=== PATIENT | female | born 1990 | race Caucasian/White ===

== ENCOUNTER 2023-07-10 02:43 | Outpatient (RCR) | payer OTHER, SELFPAY ==
[2023-07-10] MEDS: Normal Saline Flush 10 ML SYR IVP (09:24)
[2023-07-10 09:50] LABS: Abs Immature Grans 0.01 10^3/uL (0.0-0.06); Absolute Basophil Count 0.05 10^3/uL (0.0-0.2); Absolute Eosinophil Count 0.33 10^3/uL (0.0-0.7); Absolute Lymphocyte Count 1.62 10^3/uL (1.2-3.4); Basophils % 1.1; Eosinophils % 7.5; HCT 34.4 % (36.0-46.0); HGB 10.9 g/dL (11.2-15.7); Immature Grans % 0.2; Lymphocytes % 36.7; MCH 26.3 pg (27.0-33.0); MCHC 31.7 % (32.0-36.0); MCV 83 fL (80-95); MPV 9.5 fL (8.0-11.0); Monocytes % 6.8; Neutrophils % 47.7; Platelet Count 330 10^3/uL (130-400); RBC 4.15 10^6/uL (3.93-5.22); RDW-SD 48.3 fL; WBC 4.41 10^3/uL (4.4-10.8)
[2023-07-10 10:07] LABS: ALT 59 U/L (14-59); AST 29 U/L (15-37); Albumin 3.9 g/dL (3.4-5.0); Alkaline Phosphatase 82 U/L (46-116); Anion Gap 9.3 mmol/L (3-11); BUN 11 mg/dL (7-18); Bilirubin, Total 0.4 mg/dL (0.2-1.0); CO2 27.7 mmol/L (21.0-32.0); CREATININE 0.8 mg/dL (0.55-1.02); Calcium 9.5 mg/dL (8.5-10.1); Chloride 108 mmol/L (98-107); Estimated GFR 99.71 (mL/min/1.73m2); Glucose 95 mg/dL (74-106); Potassium 3.9 mmol/L (3.5-5.1); Sodium 145 mmol/L (136-145); Total Protein 7.5 g/dL (6.4-8.2)
== END 2023-07-17 23:59 | disposition home or self-care (01) ==
LOC: INF 02:43
PROVIDERS: Internal Medicine Hematology & Oncology; PCP Family Medicine; Visit Provider Internal Medicine Hematology & Oncology
DX: C50.412 Malignant neoplasm of upper-outer quadrant of left female breast (principal); Z17.0 Estrogen receptor positive status [ER+]; Z45.2 Encounter for adjustment and management of vascular access device
CPT/HCPCS: 36591; 80053; 85025

== ENCOUNTER 2023-08-14 03:02 | Outpatient (RCR) | payer OTHER, SELFPAY ==
[2023-07-24] MEDS: Normal Saline Flush 10 ML SYR IVP (08:16)
[2023-07-24 08:56] LABS: HCT 31.6 % (36.0-46.0); MCH 26.3 pg (27.0-33.0); MCHC 31.6 % (32.0-36.0); MCV 83 fL (80-95); MPV 10.3 fL (8.0-11.0); Platelet Count 243 10^3/uL (130-400); RDW 15.4 % (11.7-14.6); RDW-SD 46.7 fL
[2023-07-24 09:09] LABS: ALT 76 U/L (14-59); AST 40 U/L (15-37); Albumin 3.7 g/dL (3.4-5.0); Alkaline Phosphatase 73 U/L (46-116); Anion Gap 8.4 mmol/L (3-11); BUN 12 mg/dL (7-18); Bilirubin, Total 0.3 mg/dL (0.2-1.0); CO2 25.6 mmol/L (21.0-32.0); CREATININE 0.7 mg/dL (0.55-1.02); Calcium 9.2 mg/dL (8.5-10.1); Chloride 106 mmol/L (98-107); Estimated GFR 116.31 (mL/min/1.73m2); Glucose 93 mg/dL (74-106); Potassium 3.9 mmol/L (3.5-5.1); Sodium 140 mmol/L (136-145)
[2023-07-24 09:24] LABS: Absolute Eosinophil Count 0.29 10^3/uL (0.0-0.7); Absolute Lymphocyte Count 1.37 10^3/uL (1.2-3.4); Absolute Neutrophil Count 0.65 10^3/uL (1.2-6.7); Atypical Lymphocytes % 4; Bands % 0; Diff Comment Manual Differential; RBC Morphology Normal
[2023-07-27 09:08] LABS: Abs Immature Grans 0.01 10^3/uL (0.0-0.06); Absolute Basophil Count 0.03 10^3/uL (0.0-0.2); Absolute Eosinophil Count 0.21 10^3/uL (0.0-0.7); Absolute Lymphocyte Count 1.24 10^3/uL (1.2-3.4); Absolute Monocyte Count 0.38 10^3/uL (0.1-0.8); Absolute Neutrophil Count 1.23 10^3/uL (1.2-6.7); Eosinophils % 6.8; HCT 33.7 % (36.0-46.0); HGB 10.8 g/dL (11.2-15.7); Immature Grans % 0.3; MCH 26.5 pg (27.0-33.0); MCV 83 fL (80-95); MPV 9.8 fL (8.0-11.0); Monocytes % 12.3; Neutrophils % 39.6; Platelet Count 311 10^3/uL (130-400); RBC 4.08 10^6/uL (3.93-5.22); RDW 15.7 % (11.7-14.6); RDW-SD 46.6 fL
[2023-07-27 09:18] LABS: ALT 114 U/L (14-59); AST 56 U/L (15-37); Alkaline Phosphatase 82 U/L (46-116); Anion Gap 9.5 mmol/L (3-11); BUN 11 mg/dL (7-18); Bilirubin, Total 0.4 mg/dL (0.2-1.0); CO2 25.5 mmol/L (21.0-32.0); CREATININE 0.8 mg/dL (0.55-1.02); Calcium 9.5 mg/dL (8.5-10.1); Chloride 106 mmol/L (98-107); Estimated GFR 99.09 (mL/min/1.73m2); Glucose 94 mg/dL (74-106); Potassium 3.8 mmol/L (3.5-5.1); Sodium 141 mmol/L (136-145); Total Protein 7.7 g/dL (6.4-8.2)
[2023-07-27] MEDS: Normal Saline Flush 10 ML SYR IVP (09:19)
[2023-08-14] MEDS: Normal Saline Flush 10 ML SYR IVP (10:52)
[2023-08-14 11:24] LABS: Abs Immature Grans 0.01 10^3/uL (0.0-0.06); Absolute Basophil Count 0.04 10^3/uL (0.0-0.2); Absolute Lymphocyte Count 1.45 10^3/uL (1.2-3.4); Absolute Monocyte Count 0.48 10^3/uL (0.1-0.8); Absolute Neutrophil Count 2.73 10^3/uL (1.2-6.7); Basophils % 0.8; Eosinophils % 2.1; HCT 32.5 % (36.0-46.0); HGB 10.3 g/dL (11.2-15.7); Immature Grans % 0.2; Lymphocytes % 30.1; MCHC 31.7 % (32.0-36.0); MCV 85 fL (80-95); MPV 9.5 fL (8.0-11.0); Neutrophils % 56.8; Platelet Count 311 10^3/uL (130-400); RBC 3.82 10^6/uL (3.93-5.22); RDW 15.6 % (11.7-14.6); RDW-SD 48.1 fL; WBC 4.81 10^3/uL (4.4-10.8)
[2023-08-14 11:41] LABS: ALT 61 U/L (14-59); AST 26 U/L (15-37); Albumin 3.8 g/dL (3.4-5.0); Alkaline Phosphatase 94 U/L (46-116); Anion Gap 9.8 mmol/L (3-11); BUN 10 mg/dL (7-18); Bilirubin, Total 0.3 mg/dL (0.2-1.0); CO2 27.2 mmol/L (21.0-32.0); CREATININE 0.8 mg/dL (0.55-1.02); Calcium 9.2 mg/dL (8.5-10.1); Chloride 106 mmol/L (98-107); Estimated GFR 99.09 (mL/min/1.73m2); Glucose 99 mg/dL (74-106); Potassium 3.9 mmol/L (3.5-5.1); Sodium 143 mmol/L (136-145); Total Protein 7.2 g/dL (6.4-8.2)
== END 2023-08-16 23:59 | disposition home or self-care (01) ==
LOC: INF 03:02
PROVIDERS: Internal Medicine Hematology & Oncology; PCP Family Medicine; Visit Provider Internal Medicine Hematology & Oncology
DX: C50.412 Malignant neoplasm of upper-outer quadrant of left female breast (principal); Z17.0 Estrogen receptor positive status [ER+]; Z45.2 Encounter for adjustment and management of vascular access device
CPT/HCPCS: 36591; 80053; 85025

== ENCOUNTER 2023-09-25 02:22 | Outpatient (RCR) | payer OTHER, SELFPAY ==
[2023-09-25] MEDS: Normal Saline Flush 10 ML SYR IVP (12:50)
[2023-09-25 13:40] LABS: Abs Immature Grans 0.01 10^3/uL (0.0-0.06); Absolute Basophil Count 0.03 10^3/uL (0.0-0.2); Absolute Eosinophil Count 0.23 10^3/uL (0.0-0.7); Absolute Lymphocyte Count 1.49 10^3/uL (1.2-3.4); Absolute Monocyte Count 0.39 10^3/uL (0.1-0.8); Absolute Neutrophil Count 2.47 10^3/uL (1.2-6.7); Basophils % 0.6; HCT 37.9 % (36.0-46.0); HGB 12.3 g/dL (11.2-15.7); Immature Grans % 0.2; Lymphocytes % 32.3; MCH 26.1 pg (27.0-33.0); MCHC 32.5 % (32.0-36.0); MCV 81 fL (80-95); MPV 9.3 fL (8.0-11.0); Monocytes % 8.4; Neutrophils % 53.5; Platelet Count 266 10^3/uL (130-400); RBC 4.71 10^6/uL (3.93-5.22); RDW 13.6 % (11.7-14.6); RDW-SD 40.4 fL; WBC 4.62 10^3/uL (4.4-10.8)
[2023-09-25 14:02] LABS: ALT 49 U/L (14-59); AST 26 U/L (15-37); Albumin 4.2 g/dL (3.4-5.0); Alkaline Phosphatase 89 U/L (46-116); Anion Gap 9.4 mmol/L (3-11); BUN 12 mg/dL (7-18); Bilirubin, Total 0.4 mg/dL (0.2-1.0); CO2 28.6 mmol/L (21.0-32.0); CREATININE 0.8 mg/dL (0.55-1.02); Calcium 10.2 mg/dL (8.5-10.1); Chloride 104 mmol/L (98-107); Estimated GFR 99.09 (mL/min/1.73m2); Glucose 90 mg/dL (74-106); Potassium 3.8 mmol/L (3.5-5.1); Sodium 142 mmol/L (136-145); Total Protein 7.8 g/dL (6.4-8.2)
== END 2023-10-17 23:59 | disposition home or self-care (01) ==
LOC: INF 02:22
PROVIDERS: Internal Medicine Hematology & Oncology; PCP Family Medicine; Visit Provider Internal Medicine Hematology & Oncology
DX: C50.412 Malignant neoplasm of upper-outer quadrant of left female breast (principal); Z17.0 Estrogen receptor positive status [ER+]; Z45.2 Encounter for adjustment and management of vascular access device
CPT/HCPCS: 36591; 80053; 96523; 85025

== ENCOUNTER 2023-12-18 04:53 | Outpatient (CLI) | payer OTHER, SELFPAY ==
[2023-12-18 13:50] LABS: Absolute Basophil Count 0.01 10^3/uL (0.0-0.2); Absolute Lymphocyte Count 1.55 10^3/uL (1.2-3.4); Absolute Monocyte Count 0.25 10^3/uL (0.1-0.8); Absolute Neutrophil Count 2.44 10^3/uL (1.2-6.7); Basophils % 0.2; Eosinophils % 2.3; HCT 37.7 % (36.0-46.0); HGB 12.4 g/dL (11.2-15.7); Lymphocytes % 35.6; MCH 26.8 pg (27.0-33.0); MCHC 32.9 % (32.0-36.0); MCV 82 fL (80-95); MPV 9.3 fL (8.0-11.0); Monocytes % 5.7; Neutrophils % 56.2; Platelet Count 197 10^3/uL (130-400); RBC 4.62 10^6/uL (3.93-5.22); RDW 13.4 % (11.7-14.6); WBC 4.35 10^3/uL (4.4-10.8)
[2023-12-18 14:07] LABS: ALT 34 U/L (14-59); AST 19 U/L (15-37); Albumin 4.3 g/dL (3.4-5.0); Alkaline Phosphatase 97 U/L (46-116); Anion Gap 10.2 mmol/L (3-11); BUN 16 mg/dL (7-18); Bilirubin, Total 0.3 mg/dL (0.2-1.0); CO2 27.8 mmol/L (21.0-32.0); CREATININE 0.9 mg/dL (0.55-1.02); Calcium 9.6 mg/dL (8.5-10.1); Chloride 106 mmol/L (98-107); Estimated GFR 86.03 (mL/min/1.73m2); Glucose 99 mg/dL (74-106); Sodium 144 mmol/L (136-145); Total Protein 7.8 g/dL (6.4-8.2)
[2023-12-18 22:10] LABS: FSH 23.7 mIU/mL (See Note)
[2023-12-18 22:16] LABS: Estradiol <12 pg/mL (See Note)
== END 2023-12-18 04:54 | disposition home or self-care (01) ==
LOC: LBO 04:53
PROVIDERS: PCP Family Medicine; Visit Provider Internal Medicine Hematology & Oncology
DX: C50.412 Malignant neoplasm of upper-outer quadrant of left female breast (principal); Z17.0 Estrogen receptor positive status [ER+]
CPT/HCPCS: 36415; 80053; 82670; 83001; 85025